=== PATIENT | female | born 1945 | race Caucasian/White ===

== ENCOUNTER 2021-06-06 10:00 | Outpatient (CLI) | payer MEDICARE, OTHER ==
[~2021-06-06] VITALS: Ht 157.5 cm; Wt 63.0 kg
[2021-06-06] MEDS ORDERED: FURO20TA3 PO (10:36)
[2021-06-06] MEDS ORDERED: ALBU108A5 IN (10:36)
[2021-06-06] MEDS ORDERED: NAPR375T27 PO (10:36)
[2021-06-06] MEDS ORDERED: MELA1TAB4 PO (10:36)
== END 2021-06-06 10:25 | disposition home or self-care (01) ==
LOC: LAB 10:00 → EDSTATUS 06-10 07:00
PROVIDERS: ATTEND Orthopaedic Surgery Sports Medicine
DX: Z01.818 Encounter for other preprocedural examination (principal); M19.012 Primary osteoarthritis, left shoulder; Z88.5 Allergy status to narcotic agent; Z20.822 Contact with and (suspected) exposure to COVID-19
CPT/HCPCS: 86850; 86900; 86901; U0003

== ENCOUNTER 2021-07-01 07:52 | Inpatient (IN) | payer OTHER ==
[~2021-07-01] VITALS: Ht 157.5 cm; Wt 63.0 kg
[~2021-07-01 07:52] MED LIST: ALBU108A5 IN; FURO20TA3 PO; MELA1TAB4 PO; NAPR375T27 PO; TRAM50TA2 PO
[2021-07-01] MEDS ORDERED: ceFAZolin 1GM/50ML 100 ML IV ONE (08:17)
[2021-07-01] MEDS ORDERED: TRANEXAMIC ACID 20 ML ONE (09:00)
[2021-07-01] MEDS ORDERED: BUPIVACAINE 0.25% INJ 50ML VIAL ONE (09:01)
[2021-07-01] MEDS ORDERED: VANCOMYCIN HCL 1000 MG VL ONE (09:02)
[2021-07-01] MEDS ORDERED: KETOROLAC TROMETH 30 MG/ML 1ML VIAL ONE (09:04)
[2021-07-01] MEDS ORDERED: MORPHINE SULF(PF) 0.5MG/ML 10ML VIAL ONE (09:04)
[2021-07-01] MEDS ORDERED: MIDAZOLAM HCL 2MG/2ML 2ml VIAL (1mg/ml) ONE (09:15)
[2021-07-01] MEDS ORDERED: SUCCINYLCHOLINE CHLORIDE 20 MG/ML 10ML VIAL IV ONE (09:15)
[2021-07-01] MEDS ORDERED: fentaNYL CITRATE 5 ML ONE (09:15)
[2021-07-01] MEDS ORDERED: ETOMIDATE (2MG/ML) 20ML VIAL IV ONE (09:15)
[2021-07-01] MEDS ORDERED: fentaNYL CITRATE 100 MCG/2 ML VL ONE (09:15)
[2021-07-01] MEDS ORDERED: MEPERIDINE HCL (25 MG/ML) 1ML VIAL ONE (09:16)
[2021-07-01] MEDS ORDERED: DexAMETHasone SOD PHOS 10MG/1ML VIAL INJ ONE (09:29)
[2021-07-01] MEDS ORDERED: hydrALAZINE HCL 20 MG/ML VL IV PRN (11:00)
[2021-07-01] MEDS ORDERED: HYDROmorphone HCL 2 MG/ML VL IV PRN ×2 (11:00→12:00)
[2021-07-01] MEDS ORDERED: MIDAZOLAM HCL 2MG/2ML 2ml VIAL (1mg/ml) IV PRN (11:00)
[2021-07-01] MEDS ORDERED: ONDANSETRON HCL 4 MG/2 ML VIAL IV PRN (11:00)
[2021-07-01] MEDS ORDERED: ePHEDrine SULFATE 50 MG/ML AMP IV PRN (11:00)
[2021-07-01] MEDS ORDERED: MORPHINE SULFATE 4 MG/ML SYR/VIAL IV PRN (11:00)
[2021-07-01] MEDS ORDERED: BUPIVACAINE W/ EPINEPH 0.5% MPF 30ML VIAL IJ ONE (11:58)
[2021-07-01] MEDS ORDERED: ceFAZolin 1GM/50ML 50 ML IV SCH (12:00)
[2021-07-01] MEDS ORDERED: NITROGLYCERIN 0.4 MG SL TAB SL PRN (12:00)
[2021-07-01] MEDS ORDERED: ACETAMINOPHEN 325 MG TAB PO PRN (12:00)
[2021-07-01] MEDS ORDERED: HYDROcodone-ACET 10/325MG TAB PO PRN (12:00)
[2021-07-01] MEDS: LACTATED RINGER'S 1,000 ML IV SCH ×2 (12:00→22:00)
[2021-07-01] MEDS ORDERED: MORPHINE SULF INJ 2 MG/ML SYRINGE 1ML IV PRN (12:00)
[2021-07-01] MEDS: LABETALOL HCL 5 MG/ML 4ML SYRINGE IV PRN ×2 (12:04→12:19)
[2021-07-01] MEDS ORDERED: hydrALAZINE HCL 20 MG/ML VL IV ONE (13:11)
[2021-07-01] MEDS ORDERED: ALBUTEROL SULF HFA 90MCG INH 200DOSE IN SCH (14:15)
[2021-07-01] MEDS: ASPirin-EC 81 mg tab PO SCH ×3 (15:00→21:39)
[2021-07-01] MEDS: ceFAZolin 1GM/50ML 50 ML IV SCH ×2 (15:00→20:49)
[2021-07-01] MEDS ORDERED: CYCL10TA6 PO (16:35)
[2021-07-01] MEDS ORDERED: MIRT1TAB38 PO (16:35)
[2021-07-01 16:40] VITALS: BP 117/69
[2021-07-01 19:04] LABS: Calcium 7.9 mg/dL (8.5-10.1)
[2021-07-01 19:07] LABS: BUN/Creatinine Ratio 19.2
[2021-07-01 19:10] LABS: Bilirubin, Total 0.4 mg/dL (0.2-1.0)
[2021-07-01] MEDS: ONDANSETRON HCL 4 MG/2 ML VIAL IV PRN (19:43)
[2021-07-01] MEDS: DOCUSATE SOD 100 MG CAP PO SCH (21:39)
[2021-07-01] MEDS: FUROSEMIDE 20 MG TAB PO SCH (21:39)
[2021-07-02] MEDS: ceFAZolin 1GM/50ML 50 ML IV SCH (02:44)
[2021-07-02 05:00] VITALS: BP 102/50
[2021-07-02 05:46] LABS: Basophils # (auto) 0 10 ^3/uL (0-0.2); Basophils % (auto) 0.3 % (0.0-2.0); Eosinophils # (auto) 0 10 ^3/uL (0-0.8); Hematocrit 30.3 % (36.0-46.0); Hemoglobin 10.3 g/dL (12.2-16.2); Lymphocytes # (auto) 1.1 10 ^3/uL (0.4-5.4); Lymphocytes % (auto) 8.3 % (10.0-50.0); Mean Corpuscular Hemoglobin 31.9 pg (28.0-32.0); Monocytes % (auto) 7.5 % (0.0-12.0); Neutrophils % (auto) 83.9 % (37.0-80.0); Red Blood Cells 3.22 10^6/uL (4.0-5.20); Red Cell Distribution Width 14.4 % (11.8-14.3); White Blood Cell 13.2 10^3/uL (4.4-10.8)
[2021-07-02 06:11] LABS: Potassium 4.3 mmol/L (3.5-5.1)
[2021-07-02 06:37] LABS: BUN/Creatinine Ratio 21.6
[2021-07-02] MEDS: LACTATED RINGER'S 1,000 ML IV SCH (08:00)
[2021-07-02 08:50] VITALS: BP 98/63
[2021-07-02] MEDS: FUROSEMIDE 20 MG TAB PO SCH (10:00)
[2021-07-02] MEDS: DOCUSATE SOD 100 MG CAP PO SCH (10:02)
[2021-07-02] MEDS: ASPirin-EC 81 mg tab PO SCH (10:02)
[2021-07-02] MEDS: ONDANSETRON HCL 4 MG/2 ML VIAL IV PRN (10:08)
== END 2021-07-02 12:04 | disposition home or self-care (01) | DRG 483 ==
LOC: SUR 07:52 → OVERFLOW 11:51 → WEST WING 14:47
PROVIDERS: ADMIT Orthopaedic Surgery Sports Medicine; ATTEND Orthopaedic Surgery Sports Medicine
PROC: 0RRK00Z Replacement of Left Shoulder Joint with Reverse Ball and Socket Synthetic Substitute, Open Approach (ICD-10-PCS; principal; 2021-07-01 09:24)
DX: M19.012 Primary osteoarthritis, left shoulder (principal); Z20.822 Contact with and (suspected) exposure to COVID-19; E78.5 Hyperlipidemia, unspecified; I10 Essential (primary) hypertension; J44.9 Chronic obstructive pulmonary disease, unspecified; F51.04 Psychophysiologic insomnia; G89.29 Other chronic pain; Z88.5 Allergy status to narcotic agent; Z79.899 Other long term (current) drug therapy
CPT/HCPCS: 36415; 73020; 80048; 80053; 85025; 86850; 86900; 86901; 97163; G0378; J0330; J0690; J1100; J1885; J2250; J2405; J3490

== ENCOUNTER 2021-07-28 12:21 | Inpatient (IN) | payer OTHER ==
[~2021-07-28] VITALS: Ht 157.5 cm; Wt 62.8 kg
[~2021-07-28 12:21] MED LIST changes: +CYCL10TA6 PO; +MIRT1TAB38 PO
[2021-07-28 13:13] LABS: Basophils # (auto) 0 10 ^3/uL (0-0.2); Basophils % (auto) 0.4 % (0.0-2.0); Eosinophils # (auto) 0.1 10 ^3/uL (0-0.8); Eosinophils % (auto) 1.6 % (0.0-7.0); Hematocrit 34.1 % (36.0-46.0); Hemoglobin 11.3 g/dL (12.2-16.2); Lymphocytes # (auto) 2.2 10 ^3/uL (0.4-5.4); Lymphocytes % (auto) 24.9 % (10.0-50.0); Mean Corpuscular Hemoglobin 29.9 pg (28.0-32.0); Mean Corpuscular Hgb Conc. 33.2 g/dL (32.0-36.0); Mean Corpuscular Volume 90.1 fL (80.0-100.0); Monocytes # (auto) 0.4 10 ^3/uL (0-1.3); Monocytes % (auto) 4.4 % (0.0-12.0); Neutrophils # (auto) 6.1 10 ^3/uL (1.6-8.6); Neutrophils % (auto) 68.7 % (37.0-80.0); Nucleated Red Blood Cells % 0.1 %; Red Blood Cells 3.78 10^6/uL (4.0-5.20); Red Cell Distribution Width 13.9 % (11.8-14.3); White Blood Cell 8.9 10^3/uL (4.4-10.8)
[2021-07-28 13:40] LABS: Potassium 3.9 mmol/L (3.5-5.1)
[2021-07-28 13:46] LABS: Albumin 2.7 g/dL (3.4-5.0); BUN/Creatinine Ratio 12.5; Bilirubin, Total 0.3 mg/dL (0.2-1.0); Calcium 8.6 mg/dL (8.5-10.1); Total Protein 6.5 g/dL (6.4-8.2)
[2021-07-28] MEDS ORDERED: ONDANSETRON HCL 4 MG/2 ML VIAL IV ONE (14:15)
[2021-07-28] MEDS ORDERED: metroNIDAZOLE 500MG/100ML 100 ML IV ONE (14:15)
[2021-07-28] MEDS ORDERED: MORPHINE SULFATE 4 MG/ML SYR/VIAL IV ONE (14:15)
[2021-07-28] MEDS ORDERED: SODIUM CHLORIDE 0.9% 500 ML IVB ONE (14:15)
[2021-07-28] MEDS ORDERED: NITROGLYCERIN 0.4 MG SL TAB SL PRN (14:30)
[2021-07-28] MEDS ORDERED: ONDANSETRON HCL 4 MG/2 ML VIAL IV PRN (14:30)
[2021-07-28] MEDS ORDERED: MORPHINE SULFATE INJECTION 2 MG/ML SYRG IV PRN ×2 (14:30)
[2021-07-28] MEDS: PIPERACILLIN-TAZOB 3.375GM 100 ML IV SCH ×2 (15:30→20:34)
[2021-07-28] MEDS ORDERED: MIRTAZAPINE 30 MG TAB PO SCH (20:00)
[2021-07-28 20:04] LABS: Urine Bacteria FEW /hpf (None Seen); Urine Blood Negative /uL (Negative); Urine Mucus FEW (None Seen); Urine Specific Gravity 1.013 (1.001-1.035); Urine WBC 4 /hpf (0 - 5)
[2021-07-28] MEDS ORDERED: ALBUTEROL SULF HFA 90MCG INH 200DOSE IN SCH (22:00)
[2021-07-29] MEDS: PIPERACILLIN-TAZOB 3.375GM 100 ML IV SCH ×3 (01:27→13:03)
[2021-07-29] MEDS ORDERED: ALBUTEROL SULF 2.5 MG/0.5ML(0.5%) NEB SOLN NEB PRN (02:15)
[2021-07-29] MEDS ORDERED: SODIUM CHLORIDE 0.9% 1,000 ML IV SCH (07:15)
[2021-07-29 07:27] LABS: Basophils # (auto) 0.1 10 ^3/uL (0-0.2); Eosinophils # (auto) 0.3 10 ^3/uL (0-0.8); Monocytes # (auto) 0.4 10 ^3/uL (0-1.3)
[2021-07-29 07:31] LABS: Basophils % (auto) 0.6 % (0.0-2.0); Eosinophils % (auto) 2.5 % (0.0-7.0); Hemoglobin 12.2 g/dL (12.2-16.2); Lymphocytes # (auto) 1.9 10 ^3/uL (0.4-5.4); Lymphocytes % (auto) 18.6 % (10.0-50.0); Mean Corpuscular Hemoglobin 30.3 pg (28.0-32.0); Mean Corpuscular Hgb Conc. 33.8 g/dL (32.0-36.0); Mean Corpuscular Volume 89.9 fL (80.0-100.0); Monocytes % (auto) 3.9 % (0.0-12.0); Neutrophils # (auto) 7.5 10 ^3/uL (1.6-8.6); Neutrophils % (auto) 74.4 % (37.0-80.0); Red Blood Cells 4.01 10^6/uL (4.0-5.20); Red Cell Distribution Width 14.3 % (11.8-14.3)
[2021-07-29 07:39] LABS: INR 1.04 (0.9-1.15); Partial Thromboplastin Time 27.2 sec (23.6-33.0)
[2021-07-29 08:16] LABS: Potassium 3.9 mmol/L (3.5-5.1)
[2021-07-29 08:43] LABS: BUN/Creatinine Ratio 11.9; Bilirubin, Total 0.4 mg/dL (0.2-1.0); CRP High Sensitivity 0.78 mg/dL (< 0.3); Calcium 8.9 mg/dL (8.5-10.1)
[2021-07-29] MEDS ORDERED: KEP500T PO (11:54)
[2021-07-29] MEDS ORDERED: METR500T PO (11:54)
[2021-07-29] MEDS ORDERED: SENN-62 PO (11:54)
[2021-07-29 13:52] VITALS: BP 124/78
== END 2021-07-29 14:19 | disposition home or self-care (01) | DRG 392 ==
LOC: ER 12:21 → OVERFLOW 14:30
PROVIDERS: ADMIT Hospitalist; ATTEND Hospitalist
DX: K57.92 Diverticulitis of intestine, part unspecified, without perforation or abscess without bleeding (principal); K59.00 Constipation, unspecified; I10 Essential (primary) hypertension; J44.9 Chronic obstructive pulmonary disease, unspecified; Z20.822 Contact with and (suspected) exposure to COVID-19; Z82.49 Family history of ischemic heart disease and other diseases of the circulatory system; Z90.710 Acquired absence of both cervix and uterus; Z88.5 Allergy status to narcotic agent
CPT/HCPCS: 36415; 74176; 80053; 81001; 83690; 85025; 85610; 85730; 86141; 87426; G0378; J2543; J3490

== ENCOUNTER 2021-12-27 19:20 | Inpatient (IN) | payer MEDICARE, OTHER ==
[~2021-12-27] VITALS: Ht 149.9 cm; Wt 75.0 kg
[~2021-12-27 19:20] MED LIST changes: +CYCL-839 PO; -CYCL10TA6 PO; +KEP500T PO; +METR500T PO; -NAPR375T27 PO; +SENN-62 PO
[2021-12-27 21:34] LABS: Basophils # (auto) 0 10 ^3/uL (0-0.2); Basophils % (auto) 0.5 % (0.0-2.0); Eosinophils # (auto) 0.1 10 ^3/uL (0-0.8); Hematocrit 35.1 % (36.0-46.0); Hemoglobin 11.8 g/dL (12.2-16.2); Lymphocytes # (auto) 0.9 10 ^3/uL (0.4-5.4); Lymphocytes % (auto) 12.2 % (10.0-50.0); Mean Corpuscular Hemoglobin 29.6 pg (28.0-32.0); Mean Corpuscular Hgb Conc. 33.6 g/dL (32.0-36.0); Mean Corpuscular Volume 87.9 fL (80.0-100.0); Monocytes # (auto) 0.6 10 ^3/uL (0-1.3); Monocytes % (auto) 7.4 % (0.0-12.0); Neutrophils # (auto) 5.8 10 ^3/uL (1.6-8.6); Neutrophils % (auto) 77.9 % (37.0-80.0); Red Blood Cells 3.99 10^6/uL (4.0-5.20); Red Cell Distribution Width 14.3 % (11.8-14.3); White Blood Cell 7.5 10^3/uL (4.4-10.8)
[2021-12-27 21:51] LABS: Albumin 2.7 g/dL (3.4-5.0); BUN/Creatinine Ratio 15.4; Calcium 7.7 mg/dL (8.5-10.1); Potassium 3.4 mmol/L (3.5-5.1)
[2021-12-27 21:55] LABS: Bilirubin, Total 0.4 mg/dL (0.2-1.0); Total Protein 5.5 g/dL (6.4-8.2)
[2021-12-27] MEDS ORDERED: IOHEXOL 300 MG/ML 100ML BOTTLE IJ ONE (22:12)
[2021-12-28] MEDS ORDERED: PIPERACILLIN-TAZOB 3.375GM 100 ML IV ONE (01:15)
[2021-12-28] MEDS ORDERED: ACETAMINOPHEN 325 MG TAB PO PRN (02:30)
[2021-12-28] MEDS ORDERED: NITROGLYCERIN 0.4 MG SL TAB SL PRN (03:00)
[2021-12-28 06:20] VITALS: BP 101/59
[2021-12-28 08:00] VITALS: BP 99/65
[2021-12-28 09:00] VITALS: BP 99/65
[2021-12-28] MEDS: PIPERACILLIN-TAZOB 3.375GM 100 ML IV SCH ×2 (09:55→17:18)
[2021-12-28] MEDS: FAMOTIDINE (10MG/ML) 2ML VL IV SCH (09:55)
[2021-12-28] MEDS ORDERED: ENOXAPARIN SOD 40 MG/0.4 ML SYRINGE SC SCH (10:00)
[2021-12-28 12:27] LABS: Basophils # (auto) 0 10 ^3/uL (0-0.2); Basophils % (auto) 0.2 % (0.0-2.0); Eosinophils # (auto) 0.2 10 ^3/uL (0-0.8); Eosinophils % (auto) 2.3 % (0.0-7.0); Hematocrit 36.8 % (36.0-46.0); Hemoglobin 12.2 g/dL (12.2-16.2); Lymphocytes # (auto) 1.1 10 ^3/uL (0.4-5.4); Lymphocytes % (auto) 12.7 % (10.0-50.0); Mean Corpuscular Hemoglobin 29.4 pg (28.0-32.0); Mean Corpuscular Hgb Conc. 33.1 g/dL (32.0-36.0); Mean Corpuscular Volume 88.9 fL (80.0-100.0); Monocytes # (auto) 0.7 10 ^3/uL (0-1.3); Monocytes % (auto) 7.9 % (0.0-12.0); Neutrophils # (auto) 6.4 10 ^3/uL (1.6-8.6); Neutrophils % (auto) 76.9 % (37.0-80.0); Red Blood Cells 4.13 10^6/uL (4.0-5.20); Red Cell Distribution Width 14.5 % (11.8-14.3); White Blood Cell 8.4 10^3/uL (4.4-10.8)
[2021-12-28 12:38] LABS: Calcium 8.5 mg/dL (8.5-10.1); Potassium 3.8 mmol/L (3.5-5.1)
[2021-12-28 12:44] LABS: Albumin 2.8 g/dL (3.4-5.0); BUN/Creatinine Ratio 11.5; Bilirubin, Total 0.6 mg/dL (0.2-1.0); INR 1.01 (0.9-1.15); Partial Thromboplastin Time 31.7 sec (23.6-33.0); Total Protein 6.2 g/dL (6.4-8.2)
[2021-12-28 13:00] VITALS: BP 116/68
[2021-12-28] MEDS: SOD CHL 0.9%/ KCL 20MEQ 1,000 ML IV SCH ×2 (13:12→23:00)
[2021-12-28] MEDS: MORPHINE SULFATE INJECTION 2 MG/ML SYRG IV PRN ×2 (13:18→17:54)
[2021-12-28 17:00] VITALS: BP 99/58
[2021-12-28] MEDS ORDERED: PPN PER PHARMACY 0 ML IV SCH (21:00)
[2021-12-28 22:00] VITALS: BP 120/59
[2021-12-28] MEDS: MORPHINE SULFATE 4 MG/ML SYR/VIAL IV PRN (22:40)
[2021-12-29] MEDS: PIPERACILLIN-TAZOB 3.375GM 100 ML IV SCH ×2 (01:33→09:01)
[2021-12-29] MEDS: MORPHINE SULFATE 4 MG/ML SYR/VIAL IV PRN ×3 (04:22→15:44)
[2021-12-29 05:00] VITALS: BP 122/51
[2021-12-29 06:02] LABS: Basophils # (auto) 0 10 ^3/uL (0-0.2); Basophils % (auto) 0.5 % (0.0-2.0); Eosinophils # (auto) 0.2 10 ^3/uL (0-0.8); Eosinophils % (auto) 1.8 % (0.0-7.0); Hematocrit 32.9 % (36.0-46.0); Lymphocytes % (auto) 11.8 % (10.0-50.0); Mean Corpuscular Hemoglobin 29.5 pg (28.0-32.0); Mean Corpuscular Hgb Conc. 33.3 g/dL (32.0-36.0); Mean Corpuscular Volume 88.7 fL (80.0-100.0); Monocytes # (auto) 0.8 10 ^3/uL (0-1.3); Monocytes % (auto) 9.3 % (0.0-12.0); Neutrophils # (auto) 6.7 10 ^3/uL (1.6-8.6); Neutrophils % (auto) 76.6 % (37.0-80.0); Red Blood Cells 3.71 10^6/uL (4.0-5.20); Red Cell Distribution Width 14.5 % (11.8-14.3); White Blood Cell 8.8 10^3/uL (4.4-10.8)
[2021-12-29] MEDS: SOD CHL 0.9%/ KCL 20MEQ 1,000 ML IV SCH ×2 (06:15→16:15)
[2021-12-29 06:26] LABS: Albumin 2.4 g/dL (3.4-5.0); Calcium 8.2 mg/dL (8.5-10.1); Potassium 3.4 mmol/L (3.5-5.1)
[2021-12-29 06:29] LABS: BUN/Creatinine Ratio 12.5
[2021-12-29 06:32] LABS: Bilirubin, Total 0.8 mg/dL (0.2-1.0); Total Protein 5.4 g/dL (6.4-8.2)
[2021-12-29 08:00] VITALS: BP_SYST 138; BP_SYST 148; BP_DIAS 107; BP_DIAS 72
[2021-12-29 08:58] LABS: Phosphorus 2.7 mg/dL (2.5-4.90); Pre Albumin 15.9 mg/dL (20.0-40.0)
[2021-12-29] MEDS: FAMOTIDINE (10MG/ML) 2ML VL IV SCH (09:01)
[2021-12-29] MEDS ORDERED: POTASSIUM PHOSPHATE 22 MEQ in SODIUM CHL 0.9% 100 ML IV ONE (10:00)
[2021-12-29] MEDS ORDERED: TPN PER PHARMACY 0 ML IV SCH (10:15)
[2021-12-29] MEDS ORDERED: methylPREDNISolone SOD SUCC 40 MG/ML VL IV ONE (10:30)
[2021-12-29] MEDS ORDERED: levoFLOXacin 500MG 100 ML IV ONE (10:30)
[2021-12-29] MEDS: KETOROLAC TROMETH 30 MG/ML 1ML VIAL IV PRN ×2 (11:10→18:12)
[2021-12-29] MEDS: ONDANSETRON HCL 4 MG/2 ML VIAL IV PRN ×2 (11:11→15:44)
[2021-12-29 12:00] VITALS: BP 116/70
[2021-12-29] MEDS: metroNIDAZOLE 500MG/100ML 100 ML IV SCH ×2 (13:11→21:52)
[2021-12-29 16:00] VITALS: BP 118/60
[2021-12-29] MEDS ORDERED: PPN PER PHARMACY IV NR ×8 (20:00)
[2021-12-29] MEDS: ZOLPIDEM TARTRATE 5 MG TAB PO PRN (21:21)
[2021-12-29] MEDS: methylPREDNISolone SOD SUCC 40 MG/ML VL IV SCH (21:54)
[2021-12-29 22:00] VITALS: BP 104/56
[2021-12-29] MEDS: InsuLIN REG 1unit/0.01ml Soln (100units/ml) SC SCH (23:51)
[2021-12-29] MEDS: ACCU-CHEK COMFORT CURVE STRIP VI SCH (23:54)
[2021-12-30] MEDS ORDERED: DEXTROSE (50%) 50ML SYRG IV SCH
[2021-12-30] MEDS: SOD CHL 0.9%/ KCL 20MEQ 1,000 ML IV SCH ×3 (02:15→22:00)
[2021-12-30 06:00] VITALS: BP 128/66
[2021-12-30 06:03] LABS: Potassium 4.1 mmol/L (3.5-5.1)
[2021-12-30 06:10] LABS: Albumin 2.4 g/dL (3.4-5.0); BUN/Creatinine Ratio 34.9; Bilirubin, Total 0.3 mg/dL (0.2-1.0); Calcium 8.5 mg/dL (8.5-10.1); Phosphorus 3.1 mg/dL (2.5-4.90); Total Protein 5.8 g/dL (6.4-8.2)
[2021-12-30] MEDS: metroNIDAZOLE 500MG/100ML 100 ML IV SCH ×3 (06:12→21:59)
[2021-12-30] MEDS: ACCU-CHEK COMFORT CURVE STRIP VI SCH ×4 (06:14→23:30)
[2021-12-30] MEDS: InsuLIN REG 1unit/0.01ml Soln (100units/ml) SC SCH ×4 (06:24→23:30)
[2021-12-30] MEDS: KETOROLAC TROMETH 30 MG/ML 1ML VIAL IV PRN ×2 (06:36→19:00)
[2021-12-30] MEDS ORDERED: LIDOCAINE 1% (LOCAL ANESTH.) PF 5ml SDV ID ONE (08:15)
[2021-12-30 08:54] VITALS: BP 123/69
[2021-12-30] MEDS ORDERED: IOHEXOL 300 MG/ML 100ML BOTTLE IJ ONE (09:23)
[2021-12-30] MEDS ORDERED: levoFLOXacin 500MG 100 ML IV SCH (10:00)
[2021-12-30] MEDS: methylPREDNISolone SOD SUCC 40 MG/ML VL IV SCH (10:10)
[2021-12-30] MEDS: FAMOTIDINE (10MG/ML) 2ML VL IV SCH (10:10)
[2021-12-30] MEDS: SODIUM CHLOR 0.9% PF (SALINE LOCK) 10ML VIAL/SYR IV SCH ×2 (10:10→21:59)
[2021-12-30] MEDS: levoFLOXacin 250MG 50 ML IV SCH (10:10)
[2021-12-30 13:00] VITALS: BP 125/66
[2021-12-30 17:00] VITALS: BP 125/88
[2021-12-30] MEDS ORDERED: PPN PER PHARMACY IV NR ×7 (20:00)
[2021-12-30] MEDS: TPN PER PHARMACY IV NR ×14 (20:00→22:01)
[2021-12-30 22:00] VITALS: BP 100/52
[2021-12-30] MEDS: ZOLPIDEM TARTRATE 5 MG TAB PO PRN (22:03)
[2021-12-31 05:00] VITALS: BP 116/80
[2021-12-31] MEDS: ACCU-CHEK COMFORT CURVE STRIP VI SCH ×2 (06:00→12:16)
[2021-12-31] MEDS: InsuLIN REG 1unit/0.01ml Soln (100units/ml) SC SCH ×2 (06:00→12:00)
[2021-12-31] MEDS: metroNIDAZOLE 500MG/100ML 100 ML IV SCH ×3 (07:00→21:45)
[2021-12-31 07:41] LABS: Potassium 4.7 mmol/L (3.5-5.1)
[2021-12-31 07:45] LABS: Albumin 2.5 g/dL (3.4-5.0); BUN/Creatinine Ratio 41.7; Bilirubin, Total 0.3 mg/dL (0.2-1.0); Calcium 8.3 mg/dL (8.5-10.1); Total Protein 5.7 g/dL (6.4-8.2)
[2021-12-31] MEDS: SOD CHL 0.9%/ KCL 20MEQ 1,000 ML IV SCH ×2 (08:15→17:16)
[2021-12-31] MEDS ORDERED: SODIUM PHOSPHATES 24 MEQ in SODIUM CHL 0.9% 100 ML IV ONE (08:15)
[2021-12-31 09:00] VITALS: BP 142/99
[2021-12-31] MEDS: levoFLOXacin 250MG 50 ML IV SCH ×2 (09:06→21:46)
[2021-12-31] MEDS: SODIUM CHLOR 0.9% PF (SALINE LOCK) 10ML VIAL/SYR IV SCH ×2 (09:06→21:45)
[2021-12-31] MEDS: FAMOTIDINE (10MG/ML) 2ML VL IV SCH (09:06)
[2021-12-31] MEDS ORDERED: methylPREDNISolone SOD SUCC 40 MG/ML VL IV SCH (10:00)
[2021-12-31 12:57] VITALS: BP 149/88
[2021-12-31 16:25] VITALS: BP 136/83
[2021-12-31] MEDS ORDERED: TPN PER PHARMACY IV NR ×7 (20:00)
[2021-12-31] MEDS: ZOLPIDEM TARTRATE 5 MG TAB PO PRN (21:47)
[2021-12-31 22:00] VITALS: BP 134/74
[2022-01-01] MEDS: SOD CHL 0.9%/ KCL 20MEQ 1,000 ML IV SCH (04:06)
[2022-01-01 05:00] VITALS: BP 125/72
[2022-01-01] MEDS: metroNIDAZOLE 500MG/100ML 100 ML IV SCH (06:52)
[2022-01-01] MEDS: KETOROLAC TROMETH 30 MG/ML 1ML VIAL IV PRN (08:21)
[2022-01-01 09:00] VITALS: BP 132/76
[2022-01-01] MEDS: SODIUM CHLOR 0.9% PF (SALINE LOCK) 10ML VIAL/SYR IV SCH (09:08)
[2022-01-01] MEDS: FAMOTIDINE (10MG/ML) 2ML VL IV SCH (09:08)
[2022-01-01 13:00] VITALS: BP_SYST 128; BP_SYST 135; BP_SYST 169; BP_DIAS 64; BP_DIAS 75; BP_DIAS 88
[2022-01-01] MEDS ORDERED: METR500T PO (13:28)
[2022-01-01] MEDS ORDERED: LEVO-28 PO (13:28)
[2022-01-01] MEDS ORDERED: ONDA-144 PO (13:28)
[2022-01-01 14:33] VITALS: BP 137/88
== END 2022-01-01 16:02 | disposition home or self-care (01) | DRG 391 ==
LOC: ER 19:21 → OVERFLOW 12-28 02:54 → WEST WING 12-28 05:45
PROVIDERS: ADMIT Nurse Practitioner Family; ATTEND Internal Medicine
PROC: 0D9670Z Drainage of Stomach with Drainage Device, Via Natural or Artificial Opening (ICD-10-PCS; principal; 2021-12-29)
PROC: 02HV33Z Insertion of Infusion Device into Superior Vena Cava, Percutaneous Approach (ICD-10-PCS; 2021-12-30)
PROC: B548ZZA Ultrasonography of Superior Vena Cava, Guidance (ICD-10-PCS; 2021-12-30)
DX: K57.20 Diverticulitis of large intestine with perforation and abscess without bleeding (principal); K65.0 Generalized (acute) peritonitis; E44.0 Moderate protein-calorie malnutrition; E87.6 Hypokalemia; M19.021 Primary osteoarthritis, right elbow; J44.9 Chronic obstructive pulmonary disease, unspecified; Z20.822 Contact with and (suspected) exposure to COVID-19; R19.7 Diarrhea, unspecified; Z68.27 Body mass index [BMI] 27.0-27.9, adult; Z90.710 Acquired absence of both cervix and uterus; Z88.5 Allergy status to narcotic agent
CPT/HCPCS: 36415; 36569; 71045; 73080; 73110; 73130; 74176; 74177; 80053; 82040; 82962; 83605; 83735; 84100; 84478; 84550; 85025; 85610; 85730; 86141; 87426; 87493; 96365; 96372; 97163; G0378; J1815; J1885; J1956; J2405; J2543; J3490

== ENCOUNTER 2023-03-12 11:14 | Emergency (ER) | payer OTHER ==
[~2023-03-12] VITALS: Ht 157.5 cm; Wt 65.0 kg
[~2023-03-12 11:14] MED LIST changes: -CYCL-839 PO; -KEP500T PO; +LEVO-28 PO; +ONDA-144 PO
[2023-03-12 12:39] LABS: Basophils # (auto) 0.1 10 ^3/uL (0-0.2); Basophils % (auto) 1.2 % (0.0-2.0); Eosinophils # (auto) 0.3 10 ^3/uL (0-0.8); Eosinophils % (auto) 5.2 % (0.0-7.0); Hematocrit 37.3 % (36.0-46.0); Hemoglobin 12.3 g/dL (12.2-16.2); Lymphocytes # (auto) 1.4 10 ^3/uL (0.4-5.4); Mean Corpuscular Hemoglobin 29.1 pg (28.0-32.0); Mean Corpuscular Hgb Conc. 32.9 g/dL (32.0-36.0); Mean Corpuscular Volume 88.5 fL (80.0-100.0); Monocytes # (auto) 0.3 10 ^3/uL (0-1.3); Monocytes % (auto) 5.9 % (0.0-12.0); Neutrophils # (auto) 3.2 10 ^3/uL (1.6-8.6); Neutrophils % (auto) 61.7 % (37.0-80.0); Nucleated Red Blood Cells % 0.1 %; Red Blood Cells 4.22 10^6/uL (4.0-5.20); Red Cell Distribution Width 13.8 % (11.8-14.3); White Blood Cell 5.2 10^3/uL (4.4-10.8)
[2023-03-12 13:02] LABS: Albumin 3.2 g/dL (3.4-5.0); Calcium 8.6 mg/dL (8.5-10.1); Potassium 4.3 mmol/L (3.5-5.1)
[2023-03-12 13:06] LABS: Bilirubin, Total 0.4 mg/dL (0.2-1.0); Total Protein 5.7 g/dL (6.4-8.2)
[2023-03-12] MEDS ORDERED: DIPH2.5T73 PO (15:19)
[2023-03-12 15:57] VITALS: BP 130/53
== END 2023-03-12 16:04 | disposition home or self-care (01) ==
LOC: ER 11:14
DX: R19.7 Diarrhea, unspecified (principal); J44.9 Chronic obstructive pulmonary disease, unspecified; Z90.710 Acquired absence of both cervix and uterus; Z79.2 Long term (current) use of antibiotics; Z79.899 Other long term (current) drug therapy; Z88.5 Allergy status to narcotic agent
CPT/HCPCS: 36415; 74176; 80053; 85025

== ENCOUNTER 2023-03-16 09:40 | Inpatient (IN) | payer OTHER ==
[~2023-03-16] VITALS: Ht 160 cm; Wt 68.1 kg
[~2023-03-16 09:40] MED LIST changes: +DIPH2.5T73 PO
[2023-03-16 10:42] LABS: Basophils # (auto) 0 10 ^3/uL (0-0.2); Basophils % (auto) 0.8 % (0.0-2.0); Eosinophils # (auto) 0.2 10 ^3/uL (0-0.8); Eosinophils % (auto) 3.7 % (0.0-7.0); Hematocrit 37.4 % (36.0-46.0); Hemoglobin 12.3 g/dL (12.2-16.2); Lymphocytes # (auto) 1.1 10 ^3/uL (0.4-5.4); Lymphocytes % (auto) 18.8 % (10.0-50.0); Mean Corpuscular Hemoglobin 28.9 pg (28.0-32.0); Mean Corpuscular Volume 87.6 fL (80.0-100.0); Monocytes # (auto) 0.3 10 ^3/uL (0-1.3); Monocytes % (auto) 5.4 % (0.0-12.0); Neutrophils % (auto) 71.3 % (37.0-80.0); Red Blood Cells 4.28 10^6/uL (4.0-5.20); Red Cell Distribution Width 13.7 % (11.8-14.3); White Blood Cell 5.6 10^3/uL (4.4-10.8)
[2023-03-16 11:00] LABS: Albumin 3.1 g/dL (3.4-5.0); Potassium 4.3 mmol/L (3.5-5.1)
[2023-03-16 11:05] LABS: BUN/Creatinine Ratio 17.2 (10.0-20.0); Bilirubin, Total 0.3 mg/dL (0.2-1.0); Total Protein 5.7 g/dL (6.4-8.2)
[2023-03-16] MEDS ORDERED: LOPERAMIDE 1 mg/7.5ml ORAL soln PO ONE (14:30)
[2023-03-16] MEDS ORDERED: metroNIDAZOLE 500MG/100ML 100 ML IV ONE (14:30)
[2023-03-16] MEDS ORDERED: ONDANSETRON HCL 4 MG/2 ML VIAL IV PRN (19:30)
[2023-03-16] MEDS ORDERED: ACETAMINOPHEN 325 MG TAB PO PRN ×2 (19:30)
[2023-03-16] MEDS ORDERED: ALBUTEROL SULF 2.5 MG/0.5ML(0.5%) NEB SOLN NEB PRN (19:30)
[2023-03-16] MEDS ORDERED: NITROGLYCERIN 0.4 MG SL TAB SL PRN (19:30)
[2023-03-16] MEDS ORDERED: IPRATROPIUM BROM 0.5 MG/2.5ML INH SOL NEB PRN (19:30)
[2023-03-16 19:57] VITALS: BP 124/56
[2023-03-16] MEDS: PANTOPRAZOLE 40 MG/10 ML VIAL INJ IV SCH (20:15)
[2023-03-16 20:21] LABS: Urine Bacteria FEW /hpf (None Seen); Urine Blood Negative /uL (Negative); Urine Mucus FEW (None Seen); Urine Specific Gravity 1.021 (1.001-1.035); Urine WBC 4 /hpf (0 - 5)
[2023-03-17 06:00] LABS: Basophils # (auto) 0.1 10 ^3/uL (0-0.2); Basophils % (auto) 0.9 % (0.0-2.0); Eosinophils # (auto) 0.3 10 ^3/uL (0-0.8); Eosinophils % (auto) 4.3 % (0.0-7.0); Hematocrit 35.1 % (36.0-46.0); Lymphocytes # (auto) 1.5 10 ^3/uL (0.4-5.4); Lymphocytes % (auto) 24.7 % (10.0-50.0); Mean Corpuscular Hemoglobin 29.6 pg (28.0-32.0); Mean Corpuscular Hgb Conc. 34.1 g/dL (32.0-36.0); Mean Corpuscular Volume 86.8 fL (80.0-100.0); Monocytes # (auto) 0.4 10 ^3/uL (0-1.3); Monocytes % (auto) 7.1 % (0.0-12.0); Neutrophils # (auto) 3.9 10 ^3/uL (1.6-8.6); Red Blood Cells 4.04 10^6/uL (4.0-5.20); Red Cell Distribution Width 13.8 % (11.8-14.3); White Blood Cell 6.3 10^3/uL (4.4-10.8)
[2023-03-17 06:28] LABS: Albumin 3.1 g/dL (3.4-5.0); Calcium 8.8 mg/dL (8.5-10.1); Potassium 3.4 mmol/L (3.5-5.1)
[2023-03-17 06:31] LABS: BUN/Creatinine Ratio 12.5 (10.0-20.0); Bilirubin, Total 0.4 mg/dL (0.2-1.0); Total Protein 5.6 g/dL (6.4-8.2)
[2023-03-17] MEDS: PANTOPRAZOLE 40 MG/10 ML VIAL INJ IV SCH ×2 (09:37→16:44)
[2023-03-17 13:26] VITALS: BP 125/93
[2023-03-17] MEDS ORDERED: BUSP5TAB51 PO (13:34)
[2023-03-17] MEDS ORDERED: PROP20TA73 PO (13:36)
[2023-03-17 17:00] VITALS: BP 134/64
[2023-03-17 20:00] VITALS: BP 126/60
[2023-03-17] MEDS: CHOLESTYRAMINE 4 GM POWDER PO SCH (21:06)
[2023-03-17 22:00] VITALS: BP 126/60
[2023-03-18 05:00] VITALS: BP 140/73
[2023-03-18 08:26] VITALS: BP 141/76
[2023-03-18] MEDS: CHOLESTYRAMINE 4 GM POWDER PO SCH ×2 (11:12→22:31)
[2023-03-18 12:49] VITALS: BP 127/76
[2023-03-18 17:00] VITALS: BP 131/59
[2023-03-18 22:49] VITALS: BP 131/62
[2023-03-19 04:41] VITALS: BP 127/62
[2023-03-19 09:04] VITALS: BP 134/56
[2023-03-19] MEDS: CHOLESTYRAMINE 4 GM POWDER PO SCH (11:19)
[2023-03-19] MEDS ORDERED: PANT40T PO (12:20)
[2023-03-19] MEDS ORDERED: CHL4PW PO (12:20)
[2023-03-19 12:48] VITALS: BP 122/56
[2023-03-19 12:52] VITALS: BP 122/56
== END 2023-03-19 15:10 | disposition home or self-care (01) | DRG 392 ==
LOC: ER 09:40 → OVERFLOW 19:27 → WEST WING 03-17 12:22
PROVIDERS: ADMIT Nurse Practitioner Family; ATTEND Hospitalist
DX: K52.9 Noninfective gastroenteritis and colitis, unspecified (principal); J44.9 Chronic obstructive pulmonary disease, unspecified; K21.9 Gastro-esophageal reflux disease without esophagitis; K59.00 Constipation, unspecified; Z90.710 Acquired absence of both cervix and uterus; Z88.5 Allergy status to narcotic agent
CPT/HCPCS: 36415; 74176; 80053; 81001; 84484; 85025; 87045; 87177; 87427; 87493; 96365; C9113; G0378; J2405; J3490

== ENCOUNTER 2023-04-07 08:59 | Emergency (ER) | payer OTHER ==
[~2023-04-07] VITALS: Ht 157.5 cm; Wt 63.0 kg
[~2023-04-07 08:59] MED LIST changes: +BUSP5TAB51 PO; +CHL4PW PO; -DIPH2.5T73 PO; -LEVO-28 PO; -METR500T PO; +PANT40T PO; +PROP20TA73 PO; -SENN-62 PO
[2023-04-07 10:10] VITALS: BP 93/65
[2023-04-07 10:13] LABS: Basophils # (auto) 0 10 ^3/uL (0-0.2); Basophils % (auto) 0.6 % (0.0-2.0); Eosinophils # (auto) 0.2 10 ^3/uL (0-0.8); Eosinophils % (auto) 2.8 % (0.0-7.0); Hematocrit 37.9 % (36.0-46.0); Hemoglobin 12.9 g/dL (12.2-16.2); Lymphocytes # (auto) 1.4 10 ^3/uL (0.4-5.4); Lymphocytes % (auto) 18.2 % (10.0-50.0); Mean Corpuscular Volume 88.2 fL (80.0-100.0); Monocytes # (auto) 0.5 10 ^3/uL (0-1.3); Monocytes % (auto) 6.8 % (0.0-12.0); Neutrophils # (auto) 5.4 10 ^3/uL (1.6-8.6); Neutrophils % (auto) 71.6 % (37.0-80.0); Nucleated Red Blood Cells % 0.1 %; Red Cell Distribution Width 14.7 % (11.8-14.3); White Blood Cell 7.5 10^3/uL (4.4-10.8)
[2023-04-07 10:34] LABS: Albumin 3.3 g/dL (3.4-5.0); Calcium 8.7 mg/dL (8.5-10.1); Potassium 4.1 mmol/L (3.5-5.1)
[2023-04-07 10:39] LABS: BUN/Creatinine Ratio 17.1 (10.0-20.0); Bilirubin, Total 0.4 mg/dL (0.2-1.0); Total Protein 6.4 g/dL (6.4-8.2)
[2023-04-07] MEDS ORDERED: LACT10SO3 PO (11:11)
[2023-04-07] MEDS ORDERED: LACTULOSE 20Gm/30ML SOLN PO ONE (11:30)
== END 2023-04-07 11:29 | disposition home or self-care (01) ==
LOC: ER 08:59
DX: K59.01 Slow transit constipation (principal); J44.9 Chronic obstructive pulmonary disease, unspecified; Z98.890 Other specified postprocedural states; Z90.710 Acquired absence of both cervix and uterus; Z88.5 Allergy status to narcotic agent
CPT/HCPCS: 36415; 74176; 80053; 83690; 85025

== ENCOUNTER 2023-04-15 09:35 | Emergency (ER) | payer OTHER ==
[~2023-04-15] VITALS: Ht 157.5 cm; Wt 65.7 kg
[~2023-04-15 09:35] MED LIST changes: +LACT10SO3 PO
[2023-04-15 10:49] VITALS: BP 119/50
[2023-04-15] MEDS ORDERED: IBUP600T27 PO (11:33)
[2023-04-15] MEDS ORDERED: METH500T22 PO (11:33)
== END 2023-04-15 11:43 | disposition home or self-care (01) ==
LOC: ER 09:35
DX: S16.1XXA Strain of muscle, fascia and tendon at neck level, initial encounter (principal); S46.911A Strain of unspecified muscle, fascia and tendon at shoulder and upper arm level, right arm, initial encounter; J44.9 Chronic obstructive pulmonary disease, unspecified; Z90.710 Acquired absence of both cervix and uterus; Z88.6 Allergy status to analgesic agent; W18.00XA Striking against unspecified object with subsequent fall, initial encounter; Y93.89 Activity, other specified; Y92.89 Other specified places as the place of occurrence of the external cause; Y99.8 Other external cause status
CPT/HCPCS: 72040